=== PATIENT | male | born 1990 | race African-American/Black ===

== ENCOUNTER 2020-06-13 21:10 | Emergency (ER) | payer BC ==
[~2020-06-13] VITALS: Ht 162.6 cm; Wt 63.5 kg
[2020-06-13 21:28] VITALS: Ht 162.6 cm; Wt 63.5 kg
[2020-06-13] MEDS ORDERED: DICLOFENAC SODI50 MG PO (22:09)
[2020-06-13 22:57] LABS: CALC OSMOLALITY 277 mosm/kg (275-300); CALCIUM 8.9 mg/dL (8.5-10.1); CARBON DIOXIDE 30.2 mmol/L (21.0-32.0); CHLORIDE - SERUM 102 mmol/L (98-107); CREATININE - SERUM 1.2 mg/dL (0.6-1.3); GLUCOSE 119 mg/dL (74-106); SODIUM 139 mmol/L (136-145); UREA NITROGEN 9 mg/dL (7-18); eGFR NON AFRICAN AMERICAN 75 mL/min (90-120)
[2020-06-13 22:58] LABS: BASOPHILS 0.2 % (0-2); EOSINOPHILS 0.8 % (0-7); HEMATOCRIT 41.5 % (42.0-54.0); IMMATURE GRANULOCYTES 0.7 % (0-5); LYMPHOCYTE ABS# 1.65 10x3/uL (1.32-3.57); LYMPHOCYTES 16.2 % (15-50); MCHC 33.7 g/dL (31.0-37.0); MCV 88.9 fL (80.0-100.0); MEAN PLATELET VOLUME 10.3 fL (7.4-10.4); MONOCYTES 13.1 % (2-11); NEUTROPHIL ABS# 7.03 10x3/uL (1.78-5.38); PLATELET COUNT 263 10x3/uL (130-400); RBC 4.67 10x6/uL (4.20-6.10); RDW 13.2 % (11.5-14.5); WBC 10.2 10x3/uL (4.8-10.8)
[2020-06-13 23:01] LABS: ALBUMIN 3.2 g/dL (3.4-5.0); ALKALINE PHOSPHATASE 68 U/L (30-120); ALT (SGPT) 29 U/L (10-68); BILIRUBIN - TOTAL 0.39 mg/dL (0.2-1.3); C-REACTIVE PROTEIN 16.7 mg/dL (0.0-0.9); PROTEIN - SERUM 7.9 g/dL (6.4-8.2)
[2020-06-13 23:37] VITALS: BP 124/80
[2020-06-14 00:10] LABS: ERYTHROCYTE SEDIMENTATION RATE 68 mm/hr (0-15)
== END 2020-06-13 23:37 | disposition home or self-care (01) ==
LOC: D.ER 21:10
PROVIDERS: Student in an Organized Health Care Education/Training Program
DX: M25.511 Pain in right shoulder (principal)